=== PATIENT | male | born 1930 | race Caucasian/White ===

== ENCOUNTER 2017-05-28 06:49 | Inpatient (IN) | payer MEDICARE, BC ==
[2017-05-28] VITALS (469 sets, daily range): BP systolic 127–129; BP diastolic 68–86; PULSE 81–86; TEMP 98.5–98.7; O2SAT 85–100
[~2017-05-28] VITALS: Ht 170.2 cm; Wt 75.4 kg
[~2017-05-28 06:49] MED LIST: AMOXICILLIN 8751 TAB PO; ASPIRIN 32325 MG/TAB PO; ASPIRIN 81M81 MG/TA2 PO; B-121000 MCG PO; CARDI-OMEGA1000 MG PO; EFFIENT10 MG PO; FLAX OIL1000 MG PO; FLOVENT DI50 MCG/Act IH; FOLIC ACID 40400 MCG PO; INDERAL40 MG PO; LASIX 20MG TABL20 MG PO; LEVAQUIN 750MG750 M1 PO; LIPITOR20 MG PO; LOPRESSOR 550 MG/TAB PO; METROLOTION 5959 ML; NITROSTAT0.4 MG/TAB SL; NORVASC 5MG5 MG/TAB PO; PRINIVIL20 MG PO; SYNTHROID0.075 MG/T PO; ZOCOR 20MG20 MG PO; ZYLOPRIM 300MG300 MG PO
[2017-05-28 07:39] LABS: HEMATOCRIT 39.2 % (42.0-52.0); HEMOGLOBIN 14.3 g/dl (13.5-18.0); MEAN CELL VOLUME 91 fl (80.0-100.0); MEAN CORPUSCULAR HEMOGLOBIN 33 pg (27.0-31.0); MEAN CORPUSCULAR HGB CONC 37 g/dl (33.0-37.0); MEAN PLATELET VOLUME 9.9 fl (7.4-10.4); PLATELET COUNT 161 K/mm3 (130-400); RED BLOOD COUNT 4.33 M/mm3 (4.20-5.60)
[2017-05-28 07:51] LABS: ALBUMIN 3.8 gm/dL (3.5-5.0); BILIRUBIN,TOTAL 1.1 mg/dL (0.0-1.0); C-REACTIVE PROTEIN 2.3 mg/dL (0.0-0.9); CALCIUM 8.4 mg/dL (8.4-10.2); CREATININE, serum 0.94 mg/dL (0.66-1.25); TOTAL PROTEIN 7.2 gm/dL (6.4-8.2)
[2017-05-28 08:00] LABS: TROPONIN-I 0.02 ng/mL (0.000-0.034)
[2017-05-28 08:27] LABS: COLLECTION METHOD CLEAN CATCH
[2017-05-28 08:45] LABS: MUCOUS Present /lpf; PH 6 (5-8); SQUAMOUS EPITHELIAL 0-2 /hpf; URINE APPEARANCE Cloudy; URINE BACTERIA None Seen /hpf; URINE BILIRUBIN Negative (NEGATIVE); URINE BLOOD 1+ (NEGATIVE); URINE COLOR Yellow; URINE GLUCOSE Negative (NEGATIVE); URINE KETONE Negative (NEGATIVE); URINE LEUKOCYTE ESTERASE Negative (NEGATIVE); URINE NITRATE Negative (NEGATIVE); URINE PROTEIN(semi-quant) Negative (NEGATIVE); URINE UROBILINOGEN Negative (NEGATIVE)
[2017-05-28 08:55] LABS: INR 1.2 (0.8-3.0); PROTHROMBIN TIME 13.6 SECONDS (9.7-12.8)
[2017-05-28 09:47] LABS: BAND 10 % (0-10); LYMPHOCYTE 8 % (20.0-51.0); NEUTROPHILS 82 % (42.0-75.2); NUCLEATED RED BLOOD CELL 1 (0-6); PLATELET ESTIMATE NORMAL (NORMAL)
[2017-05-28] MEDS ORDERED: EPA FISH OIL1 SGL PO (13:10)
[2017-05-28] MEDS ORDERED: LIPITOR 40MG TA40 MG PO (13:12)
[2017-05-28] MEDS ORDERED: ARNUITY IH (13:12)
[2017-05-28] MEDS ORDERED: HCTZ 25MG TAB25 MG PO (13:13)
[2017-05-28] MEDS ORDERED: FLONASEALLERGY NS (13:13)
[2017-05-28] MEDS ORDERED: LOPRESSOR 550 MG/TAB PO (13:14)
[2017-05-28] MEDS ORDERED: CLARITIN 1010 MG/TAB PO (13:14)
[2017-05-28] MEDS ORDERED: B-121000 MCG PO (13:15)
[2017-05-29] VITALS (796 sets, daily range): BP systolic 133–155; BP diastolic 71–93; PULSE 85–107; TEMP 97.9–99.2; O2SAT 87–99
[2017-05-29 05:36] LABS: MEAN CELL VOLUME 93 fl (80.0-100.0); MEAN CORPUSCULAR HGB CONC 35 g/dl (33.0-37.0); MEAN PLATELET VOLUME 9.7 fl (7.4-10.4); PLATELET COUNT 143 K/mm3 (130-400); RED BLOOD COUNT 3.54 M/mm3 (4.20-5.60); REDCELL DISTRIBUTION WIDTH-CV 13.2 % (11.5-14.5)
[2017-05-29 05:37] LABS: HEMATOCRIT 32.9 % (42.0-52.0); HEMOGLOBIN 11.6 g/dl (13.5-18.0); MEAN CORPUSCULAR HEMOGLOBIN 33 pg (27.0-31.0)
[2017-05-29 05:51] LABS: CALCIUM 7.8 mg/dL (8.4-10.2); CREATININE, serum 0.82 mg/dL (0.66-1.25); POTASSIUM 3.4 mmol/L (3.4-5.0)
[2017-05-30 00:08] VITALS: BP 146/82; PULSE 92; TEMP 99.1
[2017-05-30 03:49] VITALS: BP 159/86; PULSE 91; TEMP 98.9
[2017-05-30 06:23] LABS: HEMOGLOBIN 12.5 g/dl (13.5-18.0); MEAN CELL VOLUME 92 fl (80.0-100.0); MEAN CORPUSCULAR HEMOGLOBIN 33 pg (27.0-31.0); MEAN CORPUSCULAR HGB CONC 35 g/dl (33.0-37.0); MEAN PLATELET VOLUME 9.4 fl (7.4-10.4); PLATELET COUNT 141 K/mm3 (130-400); RED BLOOD COUNT 3.82 M/mm3 (4.20-5.60); REDCELL DISTRIBUTION WIDTH-CV 13.2 % (11.5-14.5)
[2017-05-30 06:25] LABS: HEMATOCRIT 35.3 % (42.0-52.0)
[2017-05-30 06:38] LABS: CALCIUM 8.1 mg/dL (8.4-10.2); CREATININE, serum 0.84 mg/dL (0.66-1.25); POTASSIUM 3.5 mmol/L (3.4-5.0)
[2017-05-30 07:47] VITALS: BP 155/90; PULSE 96; TEMP 98.8
[2017-05-30 12:42] VITALS: BP 122/80; PULSE 92; TEMP 98.7
[2017-05-30 16:16] VITALS: BP 121/73; PULSE 89; TEMP 97.8
[2017-05-30 20:34] VITALS: BP 126/68; PULSE 105; TEMP 97.8
[2017-05-31 00:39] VITALS: BP 148/85; PULSE 71; TEMP 98.8
[2017-05-31 04:10] VITALS: BP 152/79; PULSE 72; TEMP 99.2
[2017-05-31 07:02] LABS: BASO % 0.3 % (0.0-2.0); EOS # 0.1 (0.0-0.7); EOS % 0.9 % (0-4.0); GRAN # 5.1 (1.4-6.5); GRAN % 65.4 % (42.2-75.2); HEMOGLOBIN 12.5 g/dl (13.5-18.0); LYMPH # 1.8 (1.2-3.4); LYMPH % 22.4 % (20.0-51.0); MEAN CELL VOLUME 92 fl (80.0-100.0); MEAN CORPUSCULAR HEMOGLOBIN 33 pg (27.0-31.0); MEAN CORPUSCULAR HGB CONC 35 g/dl (33.0-37.0); MEAN PLATELET VOLUME 9.7 fl (7.4-10.4); MONO # 0.8 (0.1-0.6); PLATELET COUNT 152 K/mm3 (130-400); RED BLOOD COUNT 3.82 M/mm3 (4.20-5.60); REDCELL DISTRIBUTION WIDTH-CV 13.2 % (11.5-14.5)
[2017-05-31 07:17] LABS: CALCIUM 8.2 mg/dL (8.4-10.2); CREATININE, serum 0.92 mg/dL (0.66-1.25); POTASSIUM 3.6 mmol/L (3.4-5.0)
[2017-05-31 07:34] LABS: HEMATOCRIT 35.3 % (42.0-52.0)
[2017-05-31 08:43] VITALS: BP 120/79; PULSE 91; TEMP 97.5
[2017-05-31] MEDS ORDERED: LEVAQUIN 750MG750 M1 PO (10:07)
[2017-05-31 13:31] VITALS: BP 102/64; PULSE 75; TEMP 98.4
== END 2017-05-31 14:50 | disposition home or self-care (01) | DRG 871 ==
LOC: COL.ER 06:49 → ICU 09:34 → MEDICAL 05-29 15:22
PROVIDERS: Emergency Medicine; Internal Medicine; Physician Assistant
DX: A41.9 Sepsis, unspecified organism (principal); G92 Toxic encephalopathy; E87.1 Hypo-osmolality and hyponatremia; I10 Essential (primary) hypertension; I25.10 Atherosclerotic heart disease of native coronary artery without angina pectoris; Z95.1 Presence of aortocoronary bypass graft; Z95.5 Presence of coronary angioplasty implant and graft; E87.6 Hypokalemia; E86.0 Dehydration
CPT/HCPCS: 99223-AI; 99232-AI; 99239; J1644; J1956; J3475; J3480; J7030

== ENCOUNTER 2017-11-10 15:16 | Inpatient (IN) | payer MEDICARE, BC ==
[~2017-11-10] VITALS: Ht 170.2 cm; Wt 78.1 kg
[~2017-11-10 15:16] MED LIST changes: +ARNUITY IH; +CLARITIN 1010 MG/TAB PO; +EPA FISH OIL1 SGL PO; +FLONASEALLERGY NS; +HCTZ 25MG TAB25 MG PO; +LIPITOR 40MG TA40 MG PO; +TRIAMCINOLONE A15 G3 TP
[2017-11-10 15:51] LABS: BASO % 0.2 % (0.0-2.0); EOS % 0.2 % (0-4.0); GRAN # 9.7 (1.4-6.5); GRAN % 78.8 % (42.2-75.2); HEMATOCRIT 38.3 % (42.0-52.0); HEMOGLOBIN 13.6 g/dl (13.5-18.0); LYMPH # 1.2 (1.2-3.4); MEAN CELL VOLUME 90 fl (80.0-100.0); MEAN CORPUSCULAR HEMOGLOBIN 32 pg (27.0-31.0); MEAN CORPUSCULAR HGB CONC 36 g/dl (33.0-37.0); MEAN PLATELET VOLUME 9.7 fl (7.4-10.4); MONO # 1.2 (0.1-0.6); MONO % 10.1 % (1.7-9.3); PLATELET COUNT 155 K/mm3 (130-400); RED BLOOD COUNT 4.26 M/mm3 (4.20-5.60); REDCELL DISTRIBUTION WIDTH-CV 13.2 % (11.5-14.5)
[2017-11-10 16:00] LABS: ALBUMIN 4.1 gm/dL (3.5-5.0); BILIRUBIN,TOTAL 0.8 mg/dL (0.0-1.0); C-REACTIVE PROTEIN 3.1 mg/dL (0.0-0.9); CALCIUM 8.5 mg/dL (8.4-10.2); CREATININE, serum 0.99 mg/dL (0.66-1.25); POTASSIUM 3.8 mmol/L (3.4-5.0); TOTAL PROTEIN 7.5 gm/dL (6.4-8.2)
[2017-11-10 16:14] LABS: COLLECTION METHOD CLEAN CATCH
[2017-11-10 16:20] LABS: PH 6 (5-8); SQUAMOUS EPITHELIAL 0-2 /hpf; URINE APPEARANCE Clear; URINE BACTERIA None Seen /hpf; URINE BILIRUBIN Negative (NEGATIVE); URINE BLOOD 1+ (NEGATIVE); URINE COLOR Yellow; URINE GLUCOSE Negative (NEGATIVE); URINE KETONE Negative (NEGATIVE); URINE LEUKOCYTE ESTERASE Negative (NEGATIVE); URINE NITRATE Negative (NEGATIVE); URINE PROTEIN(semi-quant) Negative (NEGATIVE); URINE UROBILINOGEN Negative (NEGATIVE)
[2017-11-10 18:21] VITALS: BP 157/70; PULSE 86; TEMP 98.2
[2017-11-10 19:04] VITALS: BP 141/58; PULSE 81; TEMP 100.3
[2017-11-10 21:00] VITALS: BP 102/49; PULSE 65; TEMP 99.2
[2017-11-11 00:23] VITALS: BP 124/66; PULSE 65; TEMP 99
[2017-11-11 04:20] VITALS: BP 142/55; PULSE 73; TEMP 98.5
[2017-11-11 08:50] VITALS: BP 110/59; PULSE 62; TEMP 98.7
[2017-11-11 08:58] LABS: BASO % 0.2 % (0.0-2.0); EOS # 0.1 (0.0-0.7); EOS % 1.3 % (0-4.0); GRAN # 5.9 (1.4-6.5); GRAN % 71.6 % (42.2-75.2); HEMATOCRIT 37.7 % (42.0-52.0); HEMOGLOBIN 13.2 g/dl (13.5-18.0); LYMPH # 1.3 (1.2-3.4); LYMPH % 15.5 % (20.0-51.0); MEAN CELL VOLUME 92 fl (80.0-100.0); MEAN CORPUSCULAR HEMOGLOBIN 32 pg (27.0-31.0); MEAN CORPUSCULAR HGB CONC 35 g/dl (33.0-37.0); MONO # 0.9 (0.1-0.6); MONO % 10.8 % (1.7-9.3); PLATELET COUNT 148 K/mm3 (130-400); RED BLOOD COUNT 4.09 M/mm3 (4.20-5.60); REDCELL DISTRIBUTION WIDTH-CV 13.3 % (11.5-14.5)
[2017-11-11 09:07] LABS: ALBUMIN 3.7 gm/dL (3.5-5.0); BILIRUBIN,TOTAL 0.7 mg/dL (0.0-1.0); CALCIUM 8.5 mg/dL (8.4-10.2); CREATININE, serum 0.83 mg/dL (0.66-1.25); POTASSIUM 3.6 mmol/L (3.4-5.0)
[2017-11-11 11:26] VITALS: BP 117/58; PULSE 62; TEMP 98.6
[2017-11-11 17:26] VITALS: BP 128/63; PULSE 74; TEMP 97.8
[2017-11-11 19:25] VITALS: BP 121/63; PULSE 79; TEMP 98.7
[2017-11-12 05:30] VITALS: BP 143/73; PULSE 76; TEMP 98.2
[2017-11-12 06:05] LABS: BASO % 0.2 % (0.0-2.0); EOS # 0.3 (0.0-0.7); EOS % 3.2 % (0-4.0); GRAN # 5.4 (1.4-6.5); GRAN % 61.3 % (42.2-75.2); HEMATOCRIT 38.3 % (42.0-52.0); HEMOGLOBIN 13.2 g/dl (13.5-18.0); LYMPH # 1.9 (1.2-3.4); LYMPH % 21.1 % (20.0-51.0); MEAN CELL VOLUME 92 fl (80.0-100.0); MEAN CORPUSCULAR HEMOGLOBIN 32 pg (27.0-31.0); MEAN CORPUSCULAR HGB CONC 35 g/dl (33.0-37.0); MEAN PLATELET VOLUME 10.1 fl (7.4-10.4); MONO # 1.2 (0.1-0.6); MONO % 13.9 % (1.7-9.3); PLATELET COUNT 147 K/mm3 (130-400); RED BLOOD COUNT 4.16 M/mm3 (4.20-5.60); REDCELL DISTRIBUTION WIDTH-CV 13.2 % (11.5-14.5)
[2017-11-12 06:18] LABS: ALBUMIN 3.6 gm/dL (3.5-5.0); BILIRUBIN,TOTAL 0.6 mg/dL (0.0-1.0); CALCIUM 8.6 mg/dL (8.4-10.2); CREATININE, serum 0.87 mg/dL (0.66-1.25); POTASSIUM 3.8 mmol/L (3.4-5.0); TOTAL PROTEIN 6.9 gm/dL (6.4-8.2)
[2017-11-12 08:02] VITALS: BP 119/72; PULSE 88; TEMP 97.5
[2017-11-12 13:02] VITALS: BP 105/58; PULSE 75; TEMP 97.9
== END 2017-11-12 14:10 | disposition home or self-care (01) | DRG 641 ==
LOC: COL.ER 15:16 → MEDICAL 16:54
PROVIDERS: Emergency Medicine; Student in an Organized Health Care Education/Training Program
DX: E87.1 Hypo-osmolality and hyponatremia (principal); I10 Essential (primary) hypertension; I25.10 Atherosclerotic heart disease of native coronary artery without angina pectoris; Z95.1 Presence of aortocoronary bypass graft; Z95.5 Presence of coronary angioplasty implant and graft; E87.5 Hyperkalemia
CPT/HCPCS: 99223-AI; 99233-AI; 99239; J1650; J1956; J7030

== ENCOUNTER → 2018-08-14 | Outpatient (CLI) | payer MEDICARE, BC ==
[~2018-08-14] VITALS: Ht 170.2 cm; Wt 76.8 kg
[~2018-08-14] MED LIST changes: +PEPCID AC20 MG PO
[2018-08-14 09:20] VITALS: BP 145/80; PULSE 60
== END ==
LOC: COL.RAD 08:48
DX: E04.1 Nontoxic single thyroid nodule (principal)

== ENCOUNTER 2020-01-18 13:46 | Inpatient (IN) | payer MEDICARE, BC ==
[~2020-01-18] VITALS: Ht 167.6 cm; Wt 82.3 kg
[2020-01-18 14:33] LABS: BASO % 0.4 % (0.0-2.0); EOS # 0.2 (0.0-0.7); EOS % 2.4 % (0-4.0); GRAN # 5.6 (1.4-6.5); GRAN % 67.3 % (42.2-75.2); HEMATOCRIT 38.9 % (42.0-52.0); HEMOGLOBIN 13.7 g/dl (13.5-18.0); LYMPH # 1.7 (1.2-3.4); LYMPH % 20.5 % (20.0-51.0); MEAN CELL VOLUME 93 fl (80.0-100.0); MEAN CORPUSCULAR HEMOGLOBIN 33 pg (27.0-31.0); MEAN CORPUSCULAR HGB CONC 35 g/dl (33.0-37.0); MEAN PLATELET VOLUME 10.2 fl (7.4-10.4); MONO # 0.7 (0.1-0.6); MONO % 8.7 % (1.7-9.3); PLATELET COUNT 170 K/mm3 (130-400); RED BLOOD COUNT 4.19 M/mm3 (4.20-5.60); REDCELL DISTRIBUTION WIDTH-CV 13.3 % (11.5-14.5)
[2020-01-18 14:45] LABS: COLLECTION METHOD CLEAN CATCH
[2020-01-18 14:58] LABS: MUCOUS Present /lpf; PH 6 (5-8); SQUAMOUS EPITHELIAL None Seen /hpf; URINE APPEARANCE Clear; URINE BACTERIA None Seen /hpf; URINE BILIRUBIN Negative (NEGATIVE); URINE BLOOD Negative (NEGATIVE); URINE COLOR Yellow; URINE GLUCOSE 1+ (NEGATIVE); URINE KETONE Negative (NEGATIVE); URINE LEUKOCYTE ESTERASE Negative (NEGATIVE); URINE NITRATE Negative (NEGATIVE); URINE PROTEIN(semi-quant) Negative (NEGATIVE); URINE RBC 0-2 /hpf; URINE UROBILINOGEN Negative (NEGATIVE)
[2020-01-18 15:32] LABS: BILIRUBIN,TOTAL 0.5 mg/dL (0.0-1.0); CALCIUM 8.7 mg/dL (8.4-10.2); CREATININE, serum 0.98 (0.66-1.25); POTASSIUM 3.9 mmol/L (3.4-5.0); TOTAL PROTEIN 7.1 gm/dL (6.4-8.2)
[2020-01-18] MEDS ORDERED: FLOMAX 0.40.4 MG/CAP PO ×2 (15:50→16:19)
[2020-01-18 18:27] VITALS: BP 160/80; PULSE 87; TEMP 97.9
--- NOTE | 2020-01-18 19:26 | NUR ---
PT HAS SEVERAL LOOSE STOOLS TODAY AND IS WANTING TO DISCONTINUE ABX WHICH WAS DISCUSSED WITH NANCY. PT DOES NOT HAVE ENOUGH BREATH OR ENERGY TO SIT UP ON SIDE OF BED. PT USING BEDPAN FREQUENTLY. RESTING IN BED AT BEDSIDE SHIFT REPORT.
--- NOTE | 2020-01-18 19:28 | NUR ---
PT ARRIVED VIA BED FROM ED, WAS SLIDE BOARDED TO BED. DENIES PAIN AT REST. [place] COUDE CATHETER INSERTED. PT HOOKED UP TO TELE, SCD'S AND RAFY MOBLEY TO UNAFFECTED EXTREMITY. PT ON 500 ML FLUID RESTRICTION. PT RESTING IN BED, ORIENTED TO UNIT GIVEN CALL LIGHT AND PHONE TO CALL .
[2020-01-18 19:51] VITALS: BP 142/70; PULSE 84; TEMP 97.8
--- NOTE | 2020-01-18 22:45 | NUR ---
Patient resting in bed. Went over his bedtime medications with him. Sabi came in to see patient earlier to talk about surgery. Patient had no questions so consent was signed. Reminded patient he could have nothing to eat or drink after midnight.
[2020-01-19] VITALS (13 sets, daily range): BP systolic 98–145; BP diastolic 52–76; PULSE 64–101; TEMP 97.5–98.6
--- NOTE | 2020-01-19 04:55 | NUR ---
Patient resting in bed. Patient had no complaints of pain throughout the night. Alert and oriented.
[2020-01-19 06:47] LABS: MEAN CELL VOLUME 95 fl (80.0-100.0); MEAN CORPUSCULAR HGB CONC 35 g/dl (33.0-37.0); MEAN PLATELET VOLUME 10.4 fl (7.4-10.4); PLATELET COUNT 147 K/mm3 (130-400); REDCELL DISTRIBUTION WIDTH-CV 13.3 % (11.5-14.5)
[2020-01-19 06:59] LABS: CALCIUM 8.3 mg/dL (8.4-10.2); CREATININE, serum 0.83 (0.66-1.25); HEMATOCRIT 32.3 % (42.0-52.0); HEMOGLOBIN 11.3 g/dl (13.5-18.0); MEAN CORPUSCULAR HEMOGLOBIN 33 pg (27.0-31.0); POTASSIUM 3.9 mmol/L (3.4-5.0)
--- NOTE | 2020-01-19 10:10 | NUR ---
Initial visit; Patient thanked Mortar Maker for looking in on him and offering prayer and God's blessings prior to his surgical procedure this morning.
--- NOTE | 2020-01-19 10:20 | NUR ---
Patient is going down for surgery. Consent for surgery on chart. New IV started to left forearm. Pre-ops given as ordered. No other changes at this time.
--- NOTE | 2020-01-19 14:30 | NUR ---
Patient was back from surgery at 1400. He is alert oriented. He had a spinal so he can not feel his legs. Patient is having some nausea. Denies pain. Dressings to right hip are C/D/I. Spoke with patient about getting zofran but his IV started leaking. He stated he think its from not eating for 2 days. Douglas secured to leg, yellow clear. RAFY hose and SCD's to BLE. No other changes at this time. Call light within reach.
--- NOTE | 2020-01-19 16:11 | NUR ---
Strainer Tender met with the patient to complete initial intake. The patient lives in [place] with his , Noman #[phone]. The patient has a cane and walker. He is independent with ADLs. The patient's PCP is Dr. Beth and patient [facility]. The patient does not have advance directives in the EMR and is unsure if he has any in place. The patient will likely be needing post acute rehab and this SW discussed [email or web address]'s list of facilities. The patient's first choice is [facility] and second choice is [facility]. Referral sent. GRACE contacted Noman to discuss the discharge plan. She was agreeable to sending referrals. She states she contacted [facility] and she informed this SW they are not taking referrals. GRACE collaborated the above information with the patient's nurse.
--- NOTE | 2020-01-19 18:30 | NUR ---
Patient has been dong well. Denies pain and nausea. Is able to move his legs but still can't feel them very well. Explained that the sensation will come back. No other changes at this time. Call light within reach. He drank about 250ml of gatorade since getting back from surgery. No other changes at this time. Call light within reach.
--- NOTE | 2020-01-19 20:49 | NUR ---
Pt. sitting up in bed at this time. Pt. is A&OX3, assessment complete. IV to rt. forearm patent. Dressings to rt. leg cdi. Pt. reports pain to rt. leg at a 3 and denies need for pain meds at this time. Pt. denies further needs, call light within reach.
[2020-01-20 05:32] VITALS: BP 112/74; PULSE 95; TEMP 98.6
[2020-01-20 07:02] LABS: HEMATOCRIT 25.6 % (42.0-52.0); HEMOGLOBIN 8.9 g/dl (13.5-18.0)
[2020-01-20 07:09] LABS: INR 1.2 (0.8-3.0); PROTHROMBIN TIME 13.5 SECONDS (9.7-12.8)
[2020-01-20 07:20] LABS: BASO % 0.2 % (0.0-2.0); EOS # 0.1 (0.0-0.7); EOS % 0.6 % (0-4.0); GRAN # 6.7 (1.4-6.5); GRAN % 69.2 % (42.2-75.2); LYMPH # 1.5 (1.2-3.4); LYMPH % 15.3 % (20.0-51.0); MEAN CELL VOLUME 95 fl (80.0-100.0); MEAN CORPUSCULAR HEMOGLOBIN 33 pg (27.0-31.0); MEAN CORPUSCULAR HGB CONC 35 g/dl (33.0-37.0); MEAN PLATELET VOLUME 10.5 fl (7.4-10.4); MONO # 1.4 (0.1-0.6); MONO % 14.1 % (1.7-9.3); PLATELET COUNT 118 K/mm3 (130-400); RED BLOOD COUNT 2.72 M/mm3 (4.20-5.60); REDCELL DISTRIBUTION WIDTH-CV 13.4 % (11.5-14.5)
[2020-01-20 07:23] LABS: CALCIUM 7.8 mg/dL (8.4-10.2); CREATININE, serum 1.21 (0.66-1.25); POTASSIUM 3.9 mmol/L (3.4-5.0)
[2020-01-20 07:59] VITALS: BP 114/53; PULSE 100; TEMP 98.1
--- NOTE | 2020-01-20 09:42 | NUR ---
Lissette with [facility] reports they can accept the patient for post acute rehab.
[2020-01-20 11:53] VITALS: BP 118/94; PULSE 102; TEMP 98.3
[2020-01-20 16:02] VITALS: BP 135/69; PULSE 94; TEMP 97.7
--- NOTE | 2020-01-20 18:00 | NUR ---
Patient did well today. He sat up in the chair most the day. Minimal complaints of pain, no complaints of nausea. He did not want pain medications today. He did not do well with standing or transfers. No bowel movement today. He is passing flatus today. No other changes at this time. Call light within reach.
[2020-01-20 20:53] VITALS: BP 133/60; PULSE 95; TEMP 98.2
[2020-01-20 23:30] VITALS: BP 134/61; PULSE 93; TEMP 98.7
[2020-01-21 05:15] VITALS: BP 111/50; PULSE 87; TEMP 97.9
[2020-01-21 07:01] LABS: BASO % 0.2 % (0.0-2.0); EOS # 0.3 (0.0-0.7); EOS % 2.6 % (0-4.0); GRAN # 7.5 (1.4-6.5); LYMPH # 1.7 (1.2-3.4); LYMPH % 15.2 % (20.0-51.0); MEAN CELL VOLUME 96 fl (80.0-100.0); MEAN CORPUSCULAR HGB CONC 34 g/dl (33.0-37.0); MEAN PLATELET VOLUME 10.5 fl (7.4-10.4); MONO # 1.3 (0.1-0.6); MONO % 11.8 % (1.7-9.3); PLATELET COUNT 112 K/mm3 (130-400); RED BLOOD COUNT 2.58 M/mm3 (4.20-5.60); REDCELL DISTRIBUTION WIDTH-CV 13.4 % (11.5-14.5)
[2020-01-21 07:06] LABS: HEMATOCRIT 24.8 % (42.0-52.0); HEMOGLOBIN 8.5 g/dl (13.5-18.0); MEAN CORPUSCULAR HEMOGLOBIN 33 pg (27.0-31.0)
--- NOTE | 2020-01-21 07:07 | NUR ---
PT RESTING IN BED AT BEDSIDE SHIFT, DENIED PAIN THIS AM REPORTS BM THIS AM.
[2020-01-21 07:16] LABS: CALCIUM 7.8 mg/dL (8.4-10.2); CREATININE, serum 1.75 (0.66-1.25); INR 1.2 (0.8-3.0); POTASSIUM 3.8 mmol/L (3.4-5.0); PROTHROMBIN TIME 13.4 SECONDS (9.7-12.8)
[2020-01-21 08:31] VITALS: BP 109/60; PULSE 81; TEMP 98.4
--- NOTE | 2020-01-21 11:18 | NUR ---
[facility] will be able to accept the patient for post acute rehab at discharge.
[2020-01-21 11:36] VITALS: BP 120/67; PULSE 72; TEMP 98.1
--- NOTE | 2020-01-21 13:25 | NUR ---
PT TAKEN OFF TELE THIS AM, NO LONGER REQUIRES FREE WATER RESTRICTION. [place] CATHETER DC'D PT'S PENILE AREA IS ENLARGED AND SWOLLEN NO INVOLVEMENT TO SCROTUM, JUST DEPENDENT EDEMA. PT ABLE TO VOID IN URINAL. PT RECEIEVED PRXander RUSSELL THIS AM BEFORE WORKING WITH PT. PT IS MAX X2 ASSIST FOR STANDING AND PIVOT TRANSFERS.
[2020-01-21] MEDS ORDERED: ASPI325T6 PO (14:33)
[2020-01-21] MEDS ORDERED: NORCO 325 MG-51 TAB PO (14:34)
[2020-01-21] MEDS ORDERED: TYLENOL 325MG325 MG PO (14:34)
[2020-01-21] MEDS ORDERED: OSCAL 500 TAB500 MG PO (14:35)
[2020-01-21] MEDS ORDERED: MIRALAX PA17 GM/Dose PO (14:36)
[2020-01-21] MEDS ORDERED: VITAMIN C500 MG PO (14:37)
[2020-01-21] MEDS ORDERED: DUO-KAPS1 CAP PO (14:37)
--- NOTE | 2020-01-21 15:50 | NUR ---
The patient discharged to [facility] today, 01/20. SW contacted the patient's to provide update. There are no additional needs.
--- NOTE | 2020-01-21 17:44 | NUR ---
PT TRANSFERRED BY HAND MITER OPERATOR AND NURSE TO ROOM 335 VIA BED AT 1525. ALL BELONGINGS GATHERED AND TAKEN OVER. PT ORIENTED TO IPR BY THIS NURSE.
== END 2020-01-21 15:25 | DRG 481 ==
LOC: COL.ER 13:46 → SURG 15:17
PROVIDERS: Family Medicine; Orthopaedic Surgery; Physician Assistant; ADMIT Internal Medicine
PROC: 0QH736Z Insertion of Intramedullary Internal Fixation Device into Left Upper Femur, Percutaneous Approach (ICD-10-PCS; principal; 2020-01-19 11:00)
DX: S72.21XA Displaced subtrochanteric fracture of right femur, initial encounter for closed fracture (principal); N17.9 Acute kidney failure, unspecified; E87.1 Hypo-osmolality and hyponatremia; N40.0 Benign prostatic hyperplasia without lower urinary tract symptoms; E03.9 Hypothyroidism, unspecified; I10 Essential (primary) hypertension; I25.10 Atherosclerotic heart disease of native coronary artery without angina pectoris; D64.9 Anemia, unspecified; M10.9 Gout, unspecified; W10.9XXA Fall (on) (from) unspecified stairs and steps, initial encounter; E78.5 Hyperlipidemia, unspecified; D72.829 Elevated white blood cell count, unspecified; Z95.1 Presence of aortocoronary bypass graft; Z90.89 Acquired absence of other organs; Z79.82 Long term (current) use of aspirin; Y92.029 Unspecified place in mobile home as the place of occurrence of the external cause
CPT/HCPCS: 99222-AI; 99232-AI; 99239; A9284; C1713; C1769; J0690; J2250; J2270; J2405; J2704; J2795; J3010; J7030; J7120; J7121

== ENCOUNTER 2020-01-21 15:42 | Inpatient (IN) | payer MEDICARE, BC ==
[~2020-01-21] VITALS: Ht 167.6 cm; Wt 87.1 kg
[~2020-01-21 15:42] MED LIST changes: +ASPI325T6 PO; +DUO-KAPS1 CAP PO; +FLOMAX 0.40.4 MG/CAP PO; +MIRALAX PA17 GM/Dose PO; +NORCO 325 MG-51 TAB PO; +OSCAL 500 TAB500 MG PO; +TYLENOL 325MG325 MG PO; +VITAMIN C500 MG PO
[2020-01-21 17:44] VITALS: BP 131/58; PULSE 94; TEMP 97.4
[2020-01-21 17:49] VITALS: BP 134/58; PULSE 92; TEMP 97.4
--- NOTE | 2020-01-21 18:29 | NUR ---
PT TRANSFERRED BY THIS NURSE AND IT SOFTWARE DEVELOPER VIA BED FROM SURGICAL 325 TO IPR 335. ALL BELONGINGS GATHERED AND BROUGHT OVER. THIS NURSE ORIENTED PT TO UNIT AND REHAB AND PERFORMED BIMS WELL MED REC AND ENTERING ORDERS. PT DOING WELL WHILE RESTING IN BED.
--- NOTE | 2020-01-21 21:00 | NUR ---
PT RESTING IN BED,. PLEASANT AND COOPERATIVE. REPOSTIONED FOR BETTER ALIGNMENTMENT. SEE MAR FOR PAIN MEDS GIVEN. ICE PACK TO RT HIP. RLE FLOATED ON PILLOWS. CALL LIGHT IN REACH. BED ALARM SET.
--- NOTE | 2020-01-22 | NUR ---
NOTIFIED STEWART MENDEZ TO CLARIFY NS IV INFUSION ORDER. SEE NEW ORDER. RESTARTED NS AT 100CC/HR TO RT F/A SITE.
[2020-01-22 05:09] VITALS: BP 162/73; PULSE 92; TEMP 98.8
[2020-01-22 07:47] LABS: CREATININE, serum 1.29 (0.66-1.25); MAGNESIUM 1.8 mg/dL (1.6-2.3); POTASSIUM 3.9 mmol/L (3.4-5.0)
[2020-01-22 16:39] VITALS: BP 134/69; PULSE 88; TEMP 98.1
[2020-01-22 16:51] VITALS: BP 163/70; PULSE 79; TEMP 98
--- NOTE | 2020-01-22 19:50 | NUR ---
Patient attended all therapies today. Reported that pain was 0/10 when in bed, but was given prn pain med prior to his morning therapies. Patient has incision to his right hip and right knee that are CDI. Patient had a shower with OT this morning. Patient currently resting in bed, call light in reach and bed alarm is set. Will continue to monitor.
--- NOTE | 2020-01-22 20:00 | NUR ---
PT RESTING IN BED. DENIES PAIN AT THIS TIME. REPOSITIONED FOR COMFORT. PENIS REMAINS SWOLLEN. USES URINAL TO VOID. CALL LIGHT IN REACH.. BED ALARM SET.
[2020-01-23 05:39] VITALS: BP 162/76; PULSE 80; TEMP 98.2
--- NOTE | 2020-01-23 14:18 | NUR ---
Plan: Return to [facility]. SW met with patient about plan. Patient has a spouse Noman . Patient reports that he uses a walker for mobility. PCP is Dr. Miriam Allen and RX is preferred [facility] in [place]. Patient repors that Dr. Love is his heart Dr. Patient denies having any concerns at this time. SW work will contine to follow for any needs at [place].
[2020-01-23 17:27] VITALS: BP 148/68; PULSE 106; TEMP 97.2
--- NOTE | 2020-01-23 19:22 | NUR ---
Patient attended all therapies today. Patient continues to be a max assist with his transfers to the toilet and is dependent with his toileting hygiene. This nurse found a skin tear to his right hip that was just below where the bandage is for his right hip incision. The area is 1.4 cm round and was slightly bleeding. Area was cleaned, patted dry and applied telph and tegaderm over. Patient tolerated well. Will continue to monitor. Reported off to night nurse.
--- NOTE | 2020-01-23 19:30 | NUR ---
PT ASSISTED TO BEDSIDE COMMODE WITH ASSIST OF 2. SMALL, FORMED BM. SCROTUM EDEMATOUS. REFUSES ICE TO BE APPLIED. SCD'S ON BILAT LE AT HS. RAFY HOSE OFF. PULSES STRONG AND PALPABLE BILAT LE. CALL LIGHT WITHI REACH. BED ALARM ON.
[2020-01-24 04:15] VITALS: BP 135/79; PULSE 90; TEMP 99
--- NOTE | 2020-01-24 05:55 | NUR ---
PT REPORTS A GOOD NIGHT. GIVEN NORCO 1 TAB AT HS. STATES PAIN IS MINIMAL THIS AM BUT ENCOURAGED PT TO TAKE A PAIN PILL THIS AM TO HELP HIM WORK WITH THERAPY TODAY. AGREED TO THIS. CALL LIGHT IN REACH.
--- NOTE | 2020-01-24 07:43 | NUR ---
PT SITTING UP IN BED EATING BREAKFAST AT BEDSIDE SHIFT REPORT. CALL LIGHT WITHIN REACH AND BED IN LOW.
--- NOTE | 2020-01-24 15:18 | NUR ---
MODERATE AMOUNT OF SANGUINOUS DRAINAGE NOTED TO AN OPENED BLISTER ON RT UPPER THIGH NEAR INCISIONS, NEW GAUZE AND TEGADERM PLACED. INCISION DRESSGINGS ARE CDI.
[2020-01-24 16:30] VITALS: BP 148/66; PULSE 100; TEMP 98.3
--- NOTE | 2020-01-24 17:31 | NUR ---
PT REPORTS NO PAIN WHEN NOT MOVING TODAY. RECEIEVE PRN PAIN MEDICATION PRIOR TO THIS SHIFT AND HAS BEEN COMFORTABLE THROUGHOUT THE DAY. PT UPSET ABOUT DINNER ORDER BEING INCORRECT FOR THE SECOND NIGHT IN A ROW. PT SPECIFIALLY CALLED IN ALTERNATIVE MENU OPTION PRIOR TO THE DESIGNATED TIME AND IT WAS BROUGHT UP INCORRECTLY AGAIN. PT OFFERED SNACKS WHILE HE WAITS FOR CORRECT MEAL TO BE BROUGHT UP. PT SAID HE WOULD CALL IF IT TOOK TOO LONG.
--- NOTE | 2020-01-24 19:26 | NUR ---
PT RESTING IN BED WATCHING TV. VOICES NO C/O. CALL LIGHT WITHIN REACH. REPORT FROM DAY SHIFT RN.
[2020-01-25 05:57] VITALS: BP 137/67; PULSE 88; TEMP 98.7
--- NOTE | 2020-01-25 07:06 | NUR ---
PT RESTING IN BED AT BEDSIDE SHIFT REPORT. CALL LIGHT WITHIN REACH BED IN LOW.
--- NOTE | 2020-01-25 12:00 | NUR ---
DRSG TO RT MOST PROXIMAL INCISION CHANGED SANGUINEOUS DRAINAGE MOD AMT NOTED DUE TO ABOVE OPENED BLISTER AND BELOW SKIN TEAR. PT ENCOURAGED TO ELEVATE AND ICE SCROTUM TODAY, PT HAD BEEN REFUSING BUT JOB CRUZ SPOKE WITH HIM AND HE IS CURRENTLY ELEVATING AND ICING. ORDERS TO BLADDER SCAN AFTER VOID AND CHECK HGB LEVELS.
[2020-01-25 14:05] LABS: MEAN CELL VOLUME 97 fl (80.0-100.0); MEAN CORPUSCULAR HGB CONC 34 g/dl (33.0-37.0); MEAN PLATELET VOLUME 9.5 fl (7.4-10.4); PLATELET COUNT 202 K/mm3 (130-400); RED BLOOD COUNT 2.48 M/mm3 (4.20-5.60); REDCELL DISTRIBUTION WIDTH-CV 14.2 % (11.5-14.5)
[2020-01-25 14:07] LABS: HEMATOCRIT 24.1 % (42.0-52.0); HEMOGLOBIN 8.3 g/dl (13.5-18.0); MEAN CORPUSCULAR HEMOGLOBIN 33 pg (27.0-31.0)
[2020-01-25 14:16] LABS: CALCIUM 7.7 mg/dL (8.4-10.2); CREATININE, serum 0.94 (0.66-1.25); POTASSIUM 3.9 mmol/L (3.4-5.0)
[2020-01-25 14:26] LABS: BAND 9 % (0-10); EOSINOPHIL 2 % (0-4); LYMPHOCYTE 11 % (20.0-51.0); MYELOCYTE 1 % (0-0); NEUTROPHILS 71 % (42.0-75.2); PLATELET ESTIMATE NORMAL (NORMAL)
[2020-01-25 14:29] LABS: ANISOCYTOSIS 1+
[2020-01-25 17:12] VITALS: BP 144/75; PULSE 90; TEMP 98.7
--- NOTE | 2020-01-25 17:16 | NUR ---
BLADDER SCAN DONE POST VOID AND 105 MLS WAS RETAINED. JOB RCUZ UPDATED.
--- NOTE | 2020-01-25 17:27 | NUR ---
PT MOVED FROM BED TO THIS AM, PT WHEELED IN IPR HALLWAY SEVERAL TIMES FOR EXERCISE, WAS UP IN THE RECLINER FOR MOST OF THE AFTERNOON AND TRANSFERRED TO BED BEFORE DINNER. PT REPORTS NO PAIN WHEN NOT MOVING. SCROTUM ELEVATED AND ICED MAJORITY OF AFTERNOON, DENIES PAIN OR DIFFICULTY URINATING FROM EDEMA. WILL CONTINUE TO MONITOR PER JOB CRUZ.
[2020-01-26 04:41] VITALS: BP 148/69; PULSE 94; TEMP 94
--- NOTE | 2020-01-26 04:55 | NUR ---
RESTING QUIETLY. PT HAD MEDIUM BM. GAIT UNSTEADY WITH ASSIST OF 1-2. NORCO FOR PAIN AT H.S.
--- NOTE | 2020-01-26 12:15 | NUR ---
PATIENT OBTAINED A NEW SKIN TEAR TO HIS RIGHT FOREARM WHILE IN THE SHOWER WITH OT. BANDAID PLACED OVER RIGHT FOREARM. PATIENT DENIES COMPLAINTS OF PAIN AT THIS TIME. PATIENT SITTING UP IN BEDSIDE CHAIR EATING LUNCH TRAY. PO MULTIVITAMIN GIVEN. PATIENT DENIES ANY OTHER NEEDS AT THIS TIME.
--- NOTE | 2020-01-26 12:46 | NUR ---
Initial visit; Patient thanked Groover Runner for looking in on him and offering encouragement and God's blessings.
--- NOTE | 2020-01-26 15:06 | NUR ---
SW met with the patient to introduce oneself and to follow up after the weekend. The patient states that he feels things are going kind of slow, but that he has been told that he is doing well. He states that therapy gets a little tough in the afternoon. He had no questions for GRACE at this time.
--- NOTE | 2020-01-26 15:08 | NUR ---
Admission QIM scores were reviewed by the team. Code of 1 for chair/bed to chair transfers was determined by team discussion to be the most usual performance for this patient during the assessment period.--PD Aleksandra
[2020-01-26 17:22] VITALS: BP 118/72; PULSE 109; TEMP 98.8
--- NOTE | 2020-01-26 19:26 | NUR ---
PATIENT HAD UNEVENTFUL SHIFT. REPORTED OFF TO ONCOMING NURSE.
--- NOTE | 2020-01-27 01:37 | NUR ---
PT RESTING IN BED THIS EVENING. REQUEST AND GIVEN NORCO 5/325 FOR RIGHT HIP DISCOMFORT. VOIDS PER URINAL AT NIGHT. URINAL WITHIN REACH. CALL LIGHT IN REACH.
[2020-01-27 04:17] VITALS: BP 142/67; PULSE 92; TEMP 98.3
--- NOTE | 2020-01-27 09:13 | NUR ---
Follow-up visit; Sesar stated he is doing "ok" this morning, that healing seems to be going "awful slow." Surface To Air Weapons Officer offered encouragement and God's blessings.
[2020-01-27 16:41] VITALS: BP 128/62; PULSE 92; TEMP 98.3
--- NOTE | 2020-01-27 18:32 | NUR ---
Patient was a one person transfer from recliner to bed using walker and gaitbelt. Patient received ice for his hip and for his groin due to swelling and elevation with a hand towel was used under his groin area. Swelling to groin is gradually improving. Will continue to monitor. Patient denies any questions at this time.
--- NOTE | 2020-01-27 20:30 | NUR ---
Initial shift assessment done- very pleasant, alert/oriented, states will take a [place] for slight discomfort right leg- right leg is edematous greater than left, TEDS on bilaterally, scrotal/penile edema continues/elevated on folded towel- voiding clear meng urine. Denies any needs- does not want any snacks at this time
[2020-01-28 04:55] VITALS: BP 129/66; PULSE 77; TEMP 98.3
--- NOTE | 2020-01-28 06:05 | NUR ---
Quiet night- no requests, voiding per urinal without problems, denies need for pain med at this time- did not want to turn on a side at this time- did boost patient up in bed and changed pad under him,, continues with edema/bruising to the right hip area-dressings intact, scrotum elevated on a towel-
[2020-01-28 09:38] VITALS: BP 101/50; PULSE 86; TEMP 97.4
[2020-01-28 11:56] VITALS: BP 113/52; PULSE 73; TEMP 98.3
--- NOTE | 2020-01-28 12:50 | NUR ---
Patient resting in recliner at this time, call light in reach and alarm set. Patient reports that when sitting and not moving pain is controlled. Pain 0/10 at this moment, but when moving pain increases. Will continue to monitor.
--- NOTE | 2020-01-28 14:15 | NUR ---
SW contacted the patient's , Noman, to review the IPR Team Conference Note with her and the team's recommendation to re-evaluate the patient next week. Noman was agreeable to the plan. A patient/family conference call was scheduled for next Sunday at 1330. GRACE updated IPR Director. GRACE then met with the patient and presented and reviewed the IPR Team Conference Note. The patient was agreeable to the plan. SW to continue to follow.
[2020-01-28 16:00] VITALS: BP 151/64; PULSE 88; TEMP 98.1
--- NOTE | 2020-01-28 17:27 | NUR ---
Patient attended all therapies today. Currently eating supper. Patient has been having a hard time coughing up phlegm, see new order for musinex PRN. Tolerating diet well today eating 100% of his meals. Has good urine output. Uses urinal at bedside and staff empties for him. Patient denies any questions at this time.
--- NOTE | 2020-01-28 18:49 | NUR ---
Patient was a one max assist with transferring from recliner to his bed due to his legs feeling stiff from sitting. Patient attempted to lift his leg into bed by himself, but still required staff to assist him needing mod assist. Patient able to move himself up in bed with mod assist of staff. Patient currently on the phone visiting with family. He is in a pleasent mood. Will continue to monitor.
--- NOTE | 2020-01-28 20:00 | NUR ---
Report received, assumed care for fifth grade teacher. Assessment complete. A&Ox3. VS stable. Denies nausea/shortness of breath. Denies pain but states has intermittent cramping to right lower ext off and on. Repositioned with pillow support in proper allignemnt. Fresh ice pack applied. Plan of care discussed for this shift to include HS meds/pain meds as needed/calling for questions/concerns. Verbalizes understanding. Call light in reach/bed alarm on. Will monitor.
--- NOTE | 2020-01-28 21:40 | NUR ---
Guerrero one tab given per dr order for pain to right hip described as aching/cramping-rating 4/10 on pain scale.
[2020-01-29 03:48] VITALS: BP 124/84; PULSE 75; TEMP 97.9
--- NOTE | 2020-01-29 04:00 | NUR ---
Rested well this shift. Received PO pain meds x1 with good results. Vitals remained stable. Fresh ice packs applied. Denies current needs. Call light in reach. Will monitor.
--- NOTE | 2020-01-29 07:06 | NUR ---
PT RESTING IN BED AT BEDSIDE SHIFT REPORT. BED IN LOW, CALL LIGHT WITHIN REACH.
--- NOTE | 2020-01-29 17:38 | NUR ---
PT RECEIVED PRN PAIN MEDICATION TWICE TODAY. ELEVATED SCROTUM AND PENIS ON ICE AND ICE TO HIP TODAY. DRESSING REMAINED CDI. PT MOD ASSIST FOR AMBULATION/TRANSFERS.
[2020-01-29 17:43] VITALS: BP 149/71; PULSE 88; TEMP 98.2
[2020-01-29 20:43] VITALS: BP 148/74; PULSE 96; TEMP 98.2
[2020-01-30 05:15] VITALS: BP 138/67; PULSE 84; TEMP 98.2
--- NOTE | 2020-01-30 06:56 | NUR ---
PT SLEEPING IN BED AT BEDSIDE SHIFT REPORT. NO PAIN MEDICATION OVER NIGHT, BED IN LOW, CALL LIGHT WITHIN REACH.
[2020-01-30 16:44] VITALS: BP 148/69; PULSE 94; TEMP 98
--- NOTE | 2020-01-30 17:54 | NUR ---
INCISION TO RT HIP LEFT MBA INTERN NO DRAINAGE NOTED AND INCISION IS WELL APPROXIMATED NO INCREASE REDNESS, WARMTH, EDEMA. CONTINUING TO ENCOURAGE PT TO ELEVATE SCROTUM AND PENIS, LITTLE IMPROVEMENT SEEN. PT RECEIEVE PRN PAIN MEDICATION ONCE THIS AM.
--- NOTE | 2020-01-30 21:00 | NUR ---
PT RESTING IN BED. FATIGUED FROM THE DAY. DENIES PAIN. ENC SCROTAL ELEVATION ON FOLDED TOWEL FOR EDEMA. RT HIP SWOLLEN WITH BRUISING NOTED. ENC IS USE. NAD ANKLE EXERCISES. CALL LIGHT IN REACH. BED ALARM SET
[2020-01-31 05:32] VITALS: BP 136/67; PULSE 79; TEMP 98
--- NOTE | 2020-01-31 09:11 | NUR ---
Patient resting in wheelchair at this time, call light in reach and awaiting his group therapy. Patient given prn pain med prior to therapy this morning. Patient was able to go from lying to sitting position on his own using his blue sling aid to move his right leg off the bed. Patient tolerated diet well this morning. Denies any questions at this time.
--- NOTE | 2020-01-31 15:13 | NUR ---
Patient currently sleeping in recliner, call light in reach and alarm is set. Patient tolerated lunch well this afternoon.
[2020-01-31 16:45] VITALS: BP 151/73; PULSE 85; TEMP 99.2
--- NOTE | 2020-01-31 21:00 | NUR ---
PT RESTING IN BED. DENEIS ANY PAIN AT THIS TIME. DECLINES ICE PACK TO SWOLLEN SCROTUM/PENIS, BRUISING TO THIS ELDER IMPROVED. RT HIP SWOLLEN WITH DIFFERENT DEGRES OF HEALING. SCD/TEDS ON BILAT. NO FREE H20 CONTINUES. DRINKS GATORADE OR PROPEL. USES URINAL AT HS.
[2020-02-01 05:33] VITALS: BP 134/65; PULSE 84; TEMP 99
[2020-02-01 16:09] VITALS: BP 142/73; PULSE 84; TEMP 99
[2020-02-01 20:04] VITALS: BP 156/68; PULSE 99; TEMP 101
[2020-02-01 20:40] VITALS: TEMP 99
--- NOTE | 2020-02-01 21:00 | NUR ---
PT RESTING IN BED. PT WAS VERY FRUSTRATED AND UPSET HE IS UNABLE TO CALL . "PHONE WONT WORK". REMINDED HIM SEVERAL TIMES THAT IN HOUSE PHONE DOES NOT CALL LONG DISTANCE. PROVIDED NURSES PHONE FOR HIM TO CALL . PT COULD NOT REMEMBER THE PHONE NUMBER. LOOKED UP ON COMPUTER. THEN TESTED THE ROOM PHONE AND CALLED IT- IT WORKED. PT LATER CALLED DAIRY BACTERIOLOGIST TO REPORT HIS PHONE WAS NOT WORKING CORRECTLY. BED ALARM SET. CALL LIGHT IN PLACE.
--- NOTE | 2020-02-01 21:11 | NUR ---
TEMP 99.0 ORALLY. ENC FREQ USE OF IS.
[2020-02-02 04:00] VITALS: BP 129/65; PULSE 81; TEMP 98.5
--- NOTE | 2020-02-02 04:39 | NUR ---
PT VOIDING SUFFICIENT AMOUNT CLEAR YELLOW PER URINAL. DENIES PAIN. CONTINUES NO FREE WATER.
[2020-02-02 06:57] LABS: BASO % 0.1 % (0.0-2.0); EOS % 0.5 % (0-4.0); GRAN # 5.5 (1.4-6.5); GRAN % 71.2 % (42.2-75.2); LYMPH # 1.5 (1.2-3.4); LYMPH % 18.9 % (20.0-51.0); MEAN CELL VOLUME 95 fl (80.0-100.0); MEAN CORPUSCULAR HGB CONC 34 g/dl (33.0-37.0); MEAN PLATELET VOLUME 9.1 fl (7.4-10.4); MONO # 0.7 (0.1-0.6); MONO % 8.4 % (1.7-9.3); PLATELET COUNT 283 K/mm3 (130-400); RED BLOOD COUNT 2.91 M/mm3 (4.20-5.60)
--- NOTE | 2020-02-02 07:05 | NUR ---
PT SLEEPING IN BED AT BEDSIDE SHIFT REPORT BED IN LOW, CALL LIGHT WITHIN REACH.
[2020-02-02 07:06] LABS: CALCIUM 7.7 mg/dL (8.4-10.2); CREATININE, serum 0.89 (0.66-1.25); MAGNESIUM 1.6 mg/dL (1.6-2.3); POTASSIUM 3.6 mmol/L (3.4-5.0)
[2020-02-02 07:11] LABS: HEMATOCRIT 27.6 % (42.0-52.0); HEMOGLOBIN 9.4 g/dl (13.5-18.0); MEAN CORPUSCULAR HEMOGLOBIN 32 pg (27.0-31.0)
[2020-02-02 10:33] LABS: BASO % 0.1 % (0.0-2.0); EOS % 0.4 % (0-4.0); GRAN # 5.9 (1.4-6.5); GRAN % 77.2 % (42.2-75.2); LYMPH # 0.9 (1.2-3.4); LYMPH % 11.9 % (20.0-51.0); MEAN CELL VOLUME 96 fl (80.0-100.0); MEAN CORPUSCULAR HGB CONC 34 g/dl (33.0-37.0); MEAN PLATELET VOLUME 9.1 fl (7.4-10.4); MONO # 0.7 (0.1-0.6); MONO % 9.4 % (1.7-9.3); PLATELET COUNT 274 K/mm3 (130-400); RED BLOOD COUNT 2.82 M/mm3 (4.20-5.60); REDCELL DISTRIBUTION WIDTH-CV 14.9 % (11.5-14.5)
[2020-02-02 10:34] LABS: HEMOGLOBIN 9.2 g/dl (13.5-18.0); MEAN CORPUSCULAR HEMOGLOBIN 33 pg (27.0-31.0)
[2020-02-02 10:45] LABS: ALBUMIN 2.7 gm/dL (3.5-5.0); BILIRUBIN,TOTAL 0.9 mg/dL (0.0-1.0); CALCIUM 7.4 mg/dL (8.4-10.2); CREATININE, serum 0.97 (0.66-1.25); POTASSIUM 3.7 mmol/L (3.4-5.0); TOTAL PROTEIN 5.2 gm/dL (6.4-8.2)
[2020-02-02 10:57] LABS: COLLECTION METHOD CLEAN CATCH
[2020-02-02 11:02] LABS: PH 6 (5-8); SQUAMOUS EPITHELIAL None Seen /hpf; URINE APPEARANCE Clear; URINE BACTERIA None Seen /hpf; URINE BILIRUBIN Negative (NEGATIVE); URINE BLOOD Negative (NEGATIVE); URINE COLOR Yellow; URINE GLUCOSE Negative (NEGATIVE); URINE KETONE Negative (NEGATIVE); URINE LEUKOCYTE ESTERASE Negative (NEGATIVE); URINE NITRATE Negative (NEGATIVE); URINE PROTEIN(semi-quant) Negative (NEGATIVE); URINE RBC 0-2 /hpf; URINE UROBILINOGEN Negative (NEGATIVE)
--- NOTE | 2020-02-02 15:20 | NUR ---
THIS NURSE WAS TOLD AT REPORT FROM NIGHT NURSE THAT PT HAD A LOW-GRADE FEVER LAST NIGHT. NO FEVER THIS AM, PT REPORTS HAVING A COUGH FOR MANY MONTHS BUT WAS MORE PRONOUNCED TODAY. THERAPY REPORTED PT SOUNDED WHEEZY AND WAS MUCH WEAKER TODAY ONLY ABLE TO WALK 8 FT OPPOSED TO 60 LAST WEEK. LUNG SOUNDS CLEAR UPON ASCULTATION THIS AM. THIS NURSE REPORTED THE FINDINGS TO ZAINAB KAISER AND SHE ORDERED A COVID SWAB, LABS, CXRAY, UA ETC. PT WAS MOVED BY THIS NURSE AROUND 1500 TO ROOM 351 UNTIL RESULTS FROM SWABS COME BACK. SEND OUT DONE THIS AM AROUND 1030 AND RAPID THIS AFTERNOON AROUND 1430.
[2020-02-02 17:34] VITALS: BP 152/78; PULSE 97; TEMP 98.9
--- NOTE | 2020-02-02 19:24 | NUR ---
Report received from [facility] nurse Gerri RN, pt broguht over to Medical floor from [facility]. Pt in chair at side of bed resting, denies needs, 02 placed at 2L NC d/t 88% on RA. Report given to KAROLYN Amezcua who will resume care.
[2020-02-02 19:58] VITALS: BP 114/62; PULSE 98; TEMP 98.8
--- NOTE | 2020-02-02 20:30 | NUR ---
Initial shift assessment done- denies pain at this time- has been up in the chair- will help back to bed at this time, very weak, unsteady with walker. o2 at 2L/nc, denies any SOB, afebrile. On contact/Droplet isolation.
[2020-02-02 23:38] VITALS: BP 135/77; PULSE 79; TEMP 99.4
[2020-02-03 04:18] VITALS: BP 145/81; PULSE 81; TEMP 98.9
[2020-02-03 05:32] LABS: BASO % 0.1 % (0.0-2.0); EOS # 0.1 (0.0-0.7); EOS % 0.8 % (0-4.0); GRAN # 4.9 (1.4-6.5); GRAN % 67.4 % (42.2-75.2); LYMPH # 1.6 (1.2-3.4); LYMPH % 21.5 % (20.0-51.0); MEAN CELL VOLUME 96 fl (80.0-100.0); MEAN CORPUSCULAR HGB CONC 35 g/dl (33.0-37.0); MEAN PLATELET VOLUME 9.2 fl (7.4-10.4); MONO # 0.6 (0.1-0.6); MONO % 8.9 % (1.7-9.3); PLATELET COUNT 269 K/mm3 (130-400); RED BLOOD COUNT 2.71 M/mm3 (4.20-5.60)
[2020-02-03 05:35] LABS: HEMATOCRIT 25.9 % (42.0-52.0); MEAN CORPUSCULAR HEMOGLOBIN 33 pg (27.0-31.0)
[2020-02-03 05:46] LABS: CALCIUM 7.3 mg/dL (8.4-10.2); CREATININE, serum 0.91 (0.66-1.25); POTASSIUM 3.5 mmol/L (3.4-5.0)
--- NOTE | 2020-02-03 05:55 | NUR ---
Quiet night- has been resting well- no requests this morning- continues with o2 at 2L/nc, SCD,s , highest temp 99.4 this shift
--- NOTE | 2020-02-03 08:04 | NUR ---
PT IS IN BED. DENIES ANY PAIN OR DISCOMFORT. JUST REQUESTS HIS URINAL NEEDING TO BE EMPTIED. PT IS FROM [facility], AND IS USED TO THE SCHEDULE MAINTAINED OVER THERE. VSS. INCISION LOOKS WELL APPROXIMATED, STILL HAS ECCHYMOSIS. NO FURTHER CONCERNS.
[2020-02-03 08:07] VITALS: BP 145/98; PULSE 80; TEMP 98.4
[2020-02-03 12:15] VITALS: BP 113/58; PULSE 74; TEMP 98.7
--- NOTE | 2020-02-03 15:01 | NUR ---
The patient tested positive for COVID and was moved to the medical unit. SW contacted the patient's room phone to follow up. The patient states that he is feeling pretty good, but his legs are still weak. He states that he has not improved much from last week. SW then contacted the patient's and confirmed the patient/family conference call for tomorrow at 1330. Noman asks that we call her on her cell phone. [phone].
[2020-02-03 19:55] VITALS: BP 159/85; PULSE 97; TEMP 100.2
--- NOTE | 2020-02-03 20:15 | NUR ---
Alert and oriented, and able to make needs known. Denies having pain and discomfort. Patient had fever of 100.2. Given PRN APAP at this time. Peripheral IV to right forearm with fluids running per orders. Denies SOB and dyspnea. LS CTA in upper lobes, diminished in lower. RT with patient. On oxygen at 7 L/min via high flow nasal canula. Denies SOB and dyspnea. HRR. Capillary refill less than 3 seconds. Non-tenting skin turgor. BSAx4. Abdomen soft and non-tender. Edema to genetalia and BLE. 2 person assist with pivot transfer from recliner to bed. Voices no questions, needs, or concerns at this time. Resting in bed with call light within reach.
[2020-02-04 00:16] VITALS: BP 138/78; PULSE 81; TEMP 99.3
[2020-02-04 04:59] VITALS: BP 145/81; PULSE 72; TEMP 97.9
--- NOTE | 2020-02-04 06:20 | NUR ---
Patient has been resting in bed with call light within reach this shift. Voices no questions, needs, or concerns at this time. Labs obtained this morning and sent to lab. Fluids continue per orders at this time. Continues on oxygen at 7 L/min via high flow nasal canula.
[2020-02-04 06:24] LABS: EOS % 0.2 % (0-4.0); GRAN % 84.2 % (42.2-75.2); LYMPH # 0.6 (1.2-3.4); LYMPH % 9.3 % (20.0-51.0); MEAN CELL VOLUME 96 fl (80.0-100.0); MEAN CORPUSCULAR HGB CONC 35 g/dl (33.0-37.0); MEAN PLATELET VOLUME 9.2 fl (7.4-10.4); MONO # 0.3 (0.1-0.6); MONO % 4.9 % (1.7-9.3); PLATELET COUNT 276 K/mm3 (130-400); RED BLOOD COUNT 2.81 M/mm3 (4.20-5.60); REDCELL DISTRIBUTION WIDTH-CV 14.9 % (11.5-14.5)
[2020-02-04 06:35] LABS: HEMATOCRIT 27.1 % (42.0-52.0); HEMOGLOBIN 9.5 g/dl (13.5-18.0); MEAN CORPUSCULAR HEMOGLOBIN 34 pg (27.0-31.0)
[2020-02-04 06:51] LABS: ALBUMIN 2.8 gm/dL (3.5-5.0); BILIRUBIN,TOTAL 0.8 mg/dL (0.0-1.0); CALCIUM 7.9 mg/dL (8.4-10.2); CREATININE, serum 1.28 (0.66-1.25); MAGNESIUM 1.7 mg/dL (1.6-2.3); POTASSIUM 3.8 mmol/L (3.4-5.0); TOTAL PROTEIN 5.4 gm/dL (6.4-8.2)
--- NOTE | 2020-02-04 08:08 | NUR ---
CRITICAL DDIMER CALLED TO DR. RODRIGUES. APPROVED THERAPY WORKING WITH PT.
[2020-02-04 08:13] VITALS: BP 120/70; TEMP 97.7
[2020-02-04] MEDS ORDERED: MONODOX100 PO (10:02)
[2020-02-04] MEDS ORDERED: VEKLURY IV (10:03)
[2020-02-04] MEDS ORDERED: RT Albuterol HFA MDI IH (10:03)
[2020-02-04] MEDS ORDERED: SENNA-S 50 MG-81 TAB PO (10:04)
[2020-02-04] MEDS ORDERED: MUCINEX DM 30 M1 TE1 PO (10:04)
[2020-02-04] MEDS ORDERED: LASIX 20MG TABL20 MG PO (10:04)
[2020-02-04] MEDS ORDERED: COLACE 100100 MG/CAP PO (10:05)
[2020-02-04] MEDS ORDERED: DECADRON6 MG PO (10:05)
--- NOTE | 2020-02-04 10:19 | NUR ---
The patient is having increased oxygen needs and requiring 6 liters of oxygen. The patient is going to discharged from [facility] today, 02/03, and be admitted as an inpatient on the medical unit. SW contacted and updated the patient's , Noman. The patient/family conference call was canceled. SW updated the medical science liaison. No additional needs at this time.
== END 2020-02-04 10:12 | DRG 560 ==
LOC: MEDICAL 02-02 16:18
PROVIDERS: Physician Assistant; Student in an Organized Health Care Education/Training Program; ADMIT Internal Medicine
DX: S72.142D Displaced intertrochanteric fracture of left femur, subsequent encounter for closed fracture with routine healing (principal); E87.1 Hypo-osmolality and hyponatremia; N17.9 Acute kidney failure, unspecified; S72.21XD Displaced subtrochanteric fracture of right femur, subsequent encounter for closed fracture with routine healing; I25.10 Atherosclerotic heart disease of native coronary artery without angina pectoris; E03.9 Hypothyroidism, unspecified; M10.9 Gout, unspecified; I10 Essential (primary) hypertension; D72.829 Elevated white blood cell count, unspecified; N40.0 Benign prostatic hyperplasia without lower urinary tract symptoms; E78.5 Hyperlipidemia, unspecified; W18.30XD Fall on same level, unspecified, subsequent encounter; Z79.82 Long term (current) use of aspirin; Z79.891 Long term (current) use of opiate analgesic; Z95.1 Presence of aortocoronary bypass graft
CPT/HCPCS: 99222-AI; 99231-AI; 99232-AI; 99233-AI; J7030; J7131; J8540